=== PATIENT | male | born 1980 | race Caucasian/White ===

== ENCOUNTER 2025-02-17 08:47 | Day surgery (SDC) | payer MEDICAID, SELFPAY ==
[2025-02-16 11:51] VITALS: BMI 45.3
[2025-02-17 10:39] VITALS: BP 114/71; PULSE 99; RESP 18; TEMP 36.1; O2SAT 96
[2025-02-17] MEDS: LACTATED RINGERS 1000ML 1,000 ML 50 ML IV (10:51)
--- NOTE | 2025-02-17 10:58 | EXP.ANES.CKL ---
[facility] Disclaimer: The information contained in this section may have been updated after the patient was seen, as this information can be updated by other users. Medical History History of left heart catheterization (LHC) History of heart attack Diabetes mellitus, type 2 Colon cancer High cholesterol Hypertension Surgical History H/O rotator cuff surgery History of colon resection Family History Other Family history of acute congestive heart failure Family history of diabetes mellitus type II Family history of myocardial infarction Social History Smoking Status: Former smoker alcohol intake: never substance use type: denies use current occupational status: employed Travel in the last 8 weeks?: None Have you lived/traveled outside [place] in past 30 days?: No Contact w/someone who lives/traveled outside US past 30 days?: No Exposure to someone with infectious disease in past 14 days?: No Do you have a fever (greater than 100.4 F or 38 C)?: No Have you tested positive for COVID-19?: No Exposed to someone with COVID-19 in past 14 days?: No Do you have a sore throat?: No Do you have a cough?: No Do you have any weakness?: No Are you experiencing any nausea/vomitting?: No Do you have any diarrhea?: No Are you experiencing any unusual bleeding?: No Do you have any muscle aches/pain?: No Do you have any abdominal pain?: No Are you experiencing loss of taste or smell?: No [facility] Anesthesia Checklist Patient Identification Patient Identification: Arm Band and Verbal (Name & ) Structural Data Admitted From: Home Planned Operative Procedure/s: Colonscopy Consent for Planned Operative Procedure(s) Verified: Yes Verified Documents: Surgical Consent and History and Physical NPO Status Verified Time NPO: 00:00 Additional verifications Anesthesia Reactions: No Airway Assessment Mallampati Score:: Class II Neurological Assessment Level of Consciousness: Awake, Alert and Appropriate Hx Seizures: No Numbness or tingling in extremities: No Anesthesia Plan Anesthesia Risk discussed: Yes Anesthesia Plan: Verified ASA Class: III Anesthesia Type: MAC
--- NOTE | 2025-02-17 11:32 | EXP.HP ---
History of Present Illness *Admission Date: 02/17/25 *History of present illness: This is a pleasant 45-year-old male [facility] patient. He was last seen in 2022. 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 He is status post low anterior resection in 2018. Ever since then he has had variable bowel movements with some constipation and some skip days and then excessive stooling. Sometimes he will have diarrhea that can last a couple of days. He did have colonoscopy with Dr. Mobley 07/2022 which was normal. He had a normal anastomosis and grade 1-2 internal hemorrhoids and is on a 3-year screening interval given his history. The patient had previously been on MiraLAX and Metamucil but felt more constipated on that. He does have diabetes and was started on Ozempic back in 2022. When he increased his dose he developed much worse constipation having straining and nausea and vomiting. We had placed him on multiple different medications trying to get things moving and he did well with Trulance every day. The patient has been off of Ozempic but reports that his primary care is going to put him back on it. He is awaiting prior authorization and he already has a prescription for Trulance to start when he starts the Ozempic. The patient reports that about 10 days ago he had had 2 days of excessive stooling and diarrhea. He had 2 episodes of bright red blood in his stool and reports it was a lot of blood. He has not had it before or since. He denies any melena or mucus in his stool. He has no family history of colon cancer but his father has Crohn's disease. [facility] Disclaimer: The information contained in this section may have been updated after the patient was seen, as this information can be updated by other users. Medical History History of left heart catheterization (LHC) History of heart attack Diabetes mellitus, type 2 Colon cancer High cholesterol Hypertension Surgical History H/O rotator cuff surgery History of colon resection Family History Other Family history of acute congestive heart failure Family history of diabetes mellitus type II Family history of myocardial infarction Social History Smoking Status: Former smoker alcohol intake: never substance use type: denies use current occupational status: employed Travel in the last 8 weeks?: None Have you lived/traveled outside US in past 30 days?: No Contact w/someone who lives/traveled outside [place] past 30 days?: No Exposure to someone with infectious disease in past 14 days?: No Do you have a fever (greater than 100.4 F or 38 C)?: No Have you tested positive for COVID-19?: No Exposed to someone with COVID-19 in past 14 days?: No Do you have a sore throat?: No Do you have a cough?: No Do you have any weakness?: No Are you experiencing any nausea/vomitting?: No Do you have any diarrhea?: No Are you experiencing any unusual bleeding?: No Do you have any muscle aches/pain?: No Do you have any abdominal pain?: No Are you experiencing loss of taste or smell?: No Review of Systems Review of Systems Review of systems (narrative): Negative *Cardiovascular Comments: Negative *Gastrointestinal Comments: Negative *Genitourinary Comments: Negative *Musculoskeletal Comments: Negative *Neurologic Comments: Negative Meds Home Medications and Allergies Home Medications ?Medication ?Instructions ?Recorded ?Confirmed ?Type atorvastatin 40 mg tablet 40 mg PO DAILY 09/30/24 02/17/25 History blood-glucose transmitter (Dexcom #1 ea 09/30/24 09/30/24 History G6 Transmitter device) diclofenac sodium 75 mg 75 mg PO DAILY 09/30/24 02/17/25 History tablet,delayed release diltiazem HCl 360 mg 360 mg PO DAILY 09/30/24 02/17/25 History capsule,extended release 24 hr ezetimibe 10 mg tablet 10 mg PO DAILY 09/30/24 02/17/25 History liraglutide 0.6 mg/0.1 mL (18 mg/3 mg SQ 09/30/24 09/30/24 History mL) subcutaneous pen injector (Victoza 2-Kj) metformin 1,000 mg tablet 1,000 mg PO BID 09/30/24 02/17/25 History metoprolol tartrate 100 mg tablet 100 mg PO BID 09/30/24 02/17/25 History olmesartan 20 mg tablet 20 mg PO BID 09/30/24 02/17/25 History pen needle, diabetic 31 gauge x #1,200 ea 09/30/24 09/30/24 History 5/16 (BD Ultra-Fine Short Pen Needle) tizanidine 4 mg tablet 4 mg PO HS 09/30/24 02/17/25 History sodium,potassium,mag sulfates 17.5 See Rx Instructions PO .COMPLEX 01/31/25 02/16/25 Rx gram-3.13 gram-1.6 gram oral soln #354 mL (Suprep Bowel Prep Kit) aspirin 81 mg tablet 81 mg PO DAILY 02/16/25 02/17/25 History clopidogrel 75 mg tablet 75 mg PO DAILY 02/16/25 02/17/25 History insulin glargine 100 unit/mL (3 60 unit SQ BID 02/16/25 02/17/25 History mL) subcutaneous pen (Lantus Solostar U-100 Insulin) insulin lispro protamine-lispro See Protocol SQ DAILY 02/16/25 02/17/25 History 100 unit/mL (50-50) subcutaneous pen isosorbide mononitrate 30 mg 30 mg PO DAILY 02/16/25 02/17/25 History tablet,extended release 24 hr magnesium oxide 400 mg (241.3 mg 400 mg PO DAILY 02/16/25 02/17/25 History magnesium) tablet plecanatide 3 mg tablet (Trulance) 3 mg PO NEEDED PRN no BM 02/16/25 02/17/25 History semaglutide 0.25 mg or 0.5 mg (2 0.5 mg SQ WEEKLY 02/16/25 02/17/25 History mg/1.5 mL) subcutaneous pen injector (Ozempic) New Prescriptions to Start Prescriptions: Allergies Allergy/AdvReac Type Severity Reaction Status Date / Time morphine Allergy Agitated Verified 02/17/25 10:38 Exam Data for Last 24 hours Vital signs and Labs for Last 24 Hours: Temp Pulse Resp BP Pulse Ox O2 Del Method 97.0 F L 99 H 18 114/71 96 Room Air 02/17/25 10:39 02/17/25 10:39 02/17/25 10:39 02/17/25 10:39 02/17/25 10:39 02/17/25 10:39 I & O for Last 24 hours: Intake & Output 02/14/25 02/15/25 02/16/25 02/17/25 23:59 23:59 23:59 23:59 Weight 316 lb *Routine HEENT Exam Head: Present normocephalic Eye: Present EOMI and PERRL ENT: Present mucous membranes moist *Routine Neck Exam Neck: Present supple *Routine Respiratory Exam Respiratory: Present CTA bilaterally *Routine Cardiovascular Exam Cardiovascular: Present RRR *Routine Abdominal Exam Abdominal: Present soft and normoactive bowel sounds; Absent tenderness *Routine Rectal Exam Rectal:: deferred *Routine Genitalia Exam Genitalia:: deferred *Routine Extremities Exam Extremities: Absent cyanosis, clubbing or edema *Routine Skin Exam Skin: Present warm; Absent rash *Routine Neurological Exam Neurological: Present alert and oriented X3 Assessment and Plan *Assessment and plan (1) History of malignant neoplasm of rectosigmoid junction: Status: Acute Category: Medical Code(s): Z85.048 - Personal history of other malignant neoplasm of rectum, rectosigmoid junction, and anus (2) Change in bowel habits: Status: Acute Category: Medical Code(s): R19.4 - Change in bowel habit (3) Blood in stool: Status: Acute Category: Medical Code(s): K92.1 - Melena Plan A/P: 1. History of rectosigmoid colon cancer with now change in bowel habits and blood in stool is the preprocedural diagnosis. The patient will be anesthetized/sedated using MAC sedation. The patient has been seen and examined. Cardiac and lung assessment prior to the examination is stable. Proceed with planned diagnostic colonoscopy.
--- NOTE | 2025-02-17 11:41 | HMH.PROCNOTE ---
[facility] Procedure Note Date: 02/17/25 Time: 11:54 Procedure Note:: Colonoscopy Procedure Report: Colonoscopy Endoscopist: Kendall Mobley II, MD Referring physician: PHYLLIS Arnold, [id number] [facility] [id number] Date of Procedure: February 17, 2025 Equipment: Olympus 190 variable stiffness pediatric colonoscope Sedation: MAC sedation Indication: Mr. Steve is a 45-year-old gentleman with rectosigmoid colon cancer diagnosed in 2017. He had low anterior resection in early 2017. His last colonoscopy was in July 2022 was normal with normal anastomosis. He did have some internal hemorrhoids. He has a history of anal fissures. The patient has been on Ozempic and does have some sluggish bowel function intermittently. He does still get some intermittent but rare bleeding from the fissure or hemorrhoids. He is here for repeat screening/surveillance colonoscopy. His father has Crohn's disease. The patient reports no family history of colon cancer. Procedure: Prior to the procedure, a history and physical exam was performed, and patient's medications and allergies were reviewed. The risks, benefits and alternatives of the sedation and procedure were discussed with the patient. All questions were answered and informed consent was obtained. The patient was brought to the procedure room. Patient identification and proposed procedure were verified by the physician and the nurse. The patient was placed in a left lateral decubitus position and the scope was passed under direct vision. Throughout the procedure, the patient's blood pressure, pulse, and oxygen saturations were monitored continuously. The colonoscopy was accomplished without difficulty. The patient tolerated the procedure well. Findings: On digital rectal examination there was normal rectal tone. There were no external hemorrhoids. There were no discernible fissures. The prostate was 2+, smooth, soft, symmetric without nodules. The colonoscope was introduced through the anal canal to the rectum and advanced to the cecum. The ileocecal valve and appendiceal orifice were identified. The scope was advanced a short distance into the ileum which appeared grossly normal. The scope was then withdrawn into the colon. The cecum, ascending, transverse, descending, sigmoid and rectum were grossly normal. The surgical LAR anastomosis (end to end anastomosis was normal and widely patent). There were no mucosal abnormalities identified. Upon retroflexion within the rectum there were grade 1-2 internal hemorrhoids. The preparation was excellent throughout with [place] Preparation Score of 9. The cecal time was 12 minutes. Impression: 1. Normal colonoscopy with intubation of the terminal ileum 2. Normal LAR anastomosis 3. Grade 1-2 internal hemorrhoids Plan: I would recommend repeat surveillance colonoscopy again in 5 years. I would continue a fiber bowel regimen or Trulance.
[2025-02-17 11:55] VITALS: BP 80/60; PULSE 98; RESP 16; TEMP 36.1; O2SAT 95
[2025-02-17 12:05] VITALS: BP 96/58; PULSE 100; RESP 16; O2SAT 97
[2025-02-17 12:15] VITALS: BP 99/46; PULSE 95; RESP 16; O2SAT 96
[2025-02-17 12:17] LABS: POC Glucose,Bedside 108 (70-110)
[2025-02-17 12:25] VITALS: BP 100/50; PULSE 95; RESP 18; O2SAT 98
== END 2025-02-17 12:38 | disposition home or self-care (01) ==
PROVIDERS: Visit Provider Internal Medicine Gastroenterology
PROC: 0DJD8ZZ Inspection of Lower Intestinal Tract, Via Natural or Artificial Opening Endoscopic (ICD-10-PCS; CPT 45378; principal; 2025-02-17 11:30)
DX: Z12.11 Encounter for screening for malignant neoplasm of colon (principal); I10 Essential (primary) hypertension; E78.00 Pure hypercholesterolemia, unspecified; E11.9 Type 2 diabetes mellitus without complications; I25.2 Old myocardial infarction; K64.1 Second degree hemorrhoids; Z79.82 Long term (current) use of aspirin; Z79.84 Long term (current) use of oral hypoglycemic drugs; Z79.4 Long term (current) use of insulin; Z79.899 Other long term (current) drug therapy; Z87.891 Personal history of nicotine dependence; Z85.048 Personal history of other malignant neoplasm of rectum, rectosigmoid junction, and anus; Z90.49 Acquired absence of other specified parts of digestive tract; Z88.5 Allergy status to narcotic agent
CPT/HCPCS: 45378; 82962; J2003; J2704; J7120